=== PATIENT | male | born 1965 | race Caucasian/White ===

== ENCOUNTER → 2021-10-06 | Outpatient (CLI) | payer MEDICARE ==
[~2021-10-06] MED LIST: ALLOPURINOL300 MG PO; COLCHICINE0.6 M1 PO; IBUPROFEN 30 M800 MG PO; IMDUR SA30 MG PO; K-TAB20 MEQ PO; LIPITOR20 MG PO; METFORMIN HYD1000 MG PO; ZESTRIL20 MG PO
== END ==
LOC: CARD 01:23
PROVIDERS: ATTEND Internal Medicine Cardiovascular Disease
DX: R07.89 Other chest pain (principal)